=== PATIENT | female | born 1945 | race Caucasian/White ===

== ENCOUNTER 2019-03-03 13:52 | Emergency (ER) | payer MEDICARE ==
[~2019-03-03] VITALS: Ht 162.6 cm; Wt 53.0 kg
[2019-03-03] MEDS ORDERED: TETanus/Pertussis (Acell)/Diphther VAC/PF (Tdap-Adult) 0.5ml syringe IM ONE (17:00)
[2019-03-03] MEDS ORDERED: cephalexin 500mg capsule PO ONE (17:10)
[2019-03-03] MEDS ORDERED: LIDOcaine 1% w/EPI 1:200,000 injection 10mL vial IM ONE (17:10)
[2019-03-03] MEDS ORDERED: LIDOcaine 1% W/epiNEPHrine 1:200,000 10ml vial IJ ONE (17:15)
[2019-03-03] MEDS ORDERED: HYDROcodone/acetaminophen 5mg/325mg tablet PO ONE (19:55)
[2019-03-03] MEDS ORDERED: naproxen 500mg tablet PO ONE (19:55)
[2019-03-03 20:25] VITALS: BP 130/65
[2019-03-03] MEDS ORDERED: CEPH250T PO (20:35)
== END 2019-03-03 20:38 | disposition home or self-care (01) ==
LOC: ER 13:53
DX: S01.01XA Laceration without foreign body of scalp, initial encounter (principal); S81.011A Laceration without foreign body, right knee, initial encounter; S80.02XA Contusion of left knee, initial encounter; W01.198A Fall on same level from slipping, tripping and stumbling with subsequent striking against other object, initial encounter; Y93.89 Activity, other specified; Y92.89 Other specified places as the place of occurrence of the external cause; Y99.9 Unspecified external cause status
CPT/HCPCS: 12002; 73110; 90471; 99284